=== PATIENT | male | born 1940 | race Caucasian/White ===

== ENCOUNTER 2019-09-12 16:38 | Emergency (ER) | payer MEDICARE, OTHER ==
[~2019-09-12] VITALS: Ht 180.3 cm; Wt 109.3 kg
[2019-09-12] MEDS ORDERED: MAGNESIUM500 MG PO (18:38)
[2019-09-12] MEDS ORDERED: ASPIR-TRIN325 MG PO (18:38)
[2019-09-12] MEDS ORDERED: MULTI VITAMIN1 EACH PO (18:39)
[2019-09-12] MEDS ORDERED: KAPSPARGO SPRIN25 MG PO (18:39)
[2019-09-12] MEDS ORDERED: AVALIDE 150-121 EACH PO (18:39)
[2019-09-12] MEDS ORDERED: NEXIUM2.5 MG PO (18:39)
[2019-09-12] MEDS ORDERED: LIPITOR20 MG PO (18:40)
== END 2019-09-12 20:24 | disposition home or self-care (01) ==
LOC: ED 16:38
DX: R10.9 Unspecified abdominal pain (principal); I10 Essential (primary) hypertension; Z79.899 Other long term (current) drug therapy; Z79.82 Long term (current) use of aspirin
CPT/HCPCS: 74177; 80053; 85025; 99284-25; J7040; Q9967

== ENCOUNTER 2020-07-29 05:39 | Emergency (ER) | payer MEDICARE, OTHER ==
[~2020-07-29] VITALS: Ht 180.3 cm; Wt 105.0 kg
[~2020-07-29 05:39] MED LIST: ASPIR-TRIN325 MG PO; AVALIDE 150-121 EACH PO; KAPSPARGO SPRIN25 MG PO; LIPITOR20 MG PO; MAGNESIUM500 MG PO; MULTI VITAMIN1 EACH PO; NEXIUM2.5 MG PO
[2020-07-29] MEDS ORDERED: ELIQUIS5 MG PO (05:57)
[2020-07-29] MEDS ORDERED: ULTRAM50 MG PO (07:00)
--- NOTE | 2020-07-29 07:29 | EKG ---
[facility] [address] [facility] [place], [place] [address] Signed Atrial fibrillation Abnormal ECG No previous ECGs available Confirmed by ROBERTA ROBERTO MD ([id number]) on 07/29/2020 7:28:53 AM Electronically Signed By: ROBERTA ROBERTO MD 07/29/20 0729 PATIENT NAME: MK HERNÁNDEZ Electrocardiogram DATE OF : 42 PHYSICIAN: ROBERTA ROBERTO MD REPORT #: [id number] REPORT IS CONFIDENTIAL AND NOT TO BE RELEASED WITHOUT AUTHORIZATION
== END 2020-07-29 07:09 | disposition home or self-care (01) ==
LOC: ED 05:39
DX: I10 Essential (primary) hypertension (principal); M25.572 Pain in left ankle and joints of left foot; Z86.73 Personal history of transient ischemic attack (TIA), and cerebral infarction without residual deficits; Z79.899 Other long term (current) drug therapy
CPT/HCPCS: 80053; 85025; 93005; 93010; 99283-25

== ENCOUNTER 2025-01-25 23:38 | Inpatient (IN) | payer MEDICARE, OTHER ==
[~2025-01-25] VITALS: Ht 180.3 cm; Wt 97.7 kg
[~2025-01-25 23:38] MED LIST changes: +ELIQUIS5 MG PO; -KAPSPARGO SPRIN25 MG PO; +METOPROLOL TART25 MG PO; +ULTRAM50 MG PO
[2025-01-26] VITALS (12 sets, daily range): BP systolic 115–160; BP diastolic 68–123
[2025-01-26] MEDS ORDERED: TRANEXAMIC ACID IN NACL,ISO-OS 1,000 MG/100 ML PIGGYBACK IV ONE (00:15)
[2025-01-26 00:29] LABS: BASOPHILS 0.7 % (0.2-1.2); EOSINOPHILS 2.4 % (0.8-7.0); LYMPHOCYTES 30.4 % (21.8-53.1); MCH 31.1 PG (25.7-32.2); MCHC 33.4 g/dL (32.3-36.5); MCV 93.0 fL (79.0-92.2); MONOCYTES 8.9 % (5.3-12.2); NEUTROPHILS 57.3 % (34.0-67.9); RBC 4.02 M/uL (4.63-6.08)
[2025-01-26 00:42] LABS: INR 1.16 (0.80-1.30); PROTIME 14.1 Sec (11.2-14.2)
[2025-01-26] MEDS ORDERED: SODIUM CHLORIDE 0.9% 1,000 ML IV ONE (00:45)
[2025-01-26 00:46] LABS: ALT (SGPT) 20.0 U/L (14-59); AST (SGOT) 10.0 U/L (15-37); GLOMERULAR FILTRATION RATE,EST 58.0 mL/min (>60); PROTEIN, TOTAL 5.8 g/dL (6.4-8.2); UREA NITROGEN 24.0 mg/dL (7-18)
[2025-01-26 01:41] LABS: ABO O; ANTIBODY SCREEN NEGATIVE; RH POSITIVE
[2025-01-26 02:04] LABS: BASOPHILS 0.4 % (0.2-1.2); EOSINOPHILS 1.0 % (0.8-7.0); LYMPHOCYTES 17.1 % (21.8-53.1); MCH 31.3 PG (25.7-32.2); MCHC 33.6 g/dL (32.3-36.5); MCV 93.2 fL (79.0-92.2); MONOCYTES 6.3 % (5.3-12.2); NEUTROPHILS 74.8 % (34.0-67.9); RBC 3.51 M/uL (4.63-6.08)
[2025-01-26 03:13] LABS: BASOPHILS 0.4 % (0.2-1.2); EOSINOPHILS 0.8 % (0.8-7.0); LYMPHOCYTES 17.9 % (21.8-53.1); MCH 31.2 PG (25.7-32.2); MCHC 33.3 g/dL (32.3-36.5); MCV 93.7 fL (79.0-92.2); MONOCYTES 5.5 % (5.3-12.2); NEUTROPHILS 75.0 % (34.0-67.9); RBC 3.65 M/uL (4.63-6.08)
[2025-01-26] MEDS ORDERED: SODIUM CHLORIDE 0.9% 50 ML IV PRN (03:30)
[2025-01-26] MEDS ORDERED: HUMAN PROTHROMBIN COMPLX(PCC) 500 UNIT/20 ML VIAL IV ONE (03:30)
[2025-01-26] MEDS ORDERED: DEXTROSE 5% - LACTATED RINGERS 1,000 ML IV SCH ×2 (04:00→23:00)
[2025-01-26] MEDS ORDERED: ACETAMINOPHEN 325 MG TAB PO PRN (04:00)
[2025-01-26] MEDS ORDERED: MORPHINE SULFATE 4 MG/ML VIAL IV PRN (04:00)
[2025-01-26 05:21] LABS: BASOPHILS 0.4 % (0.2-1.2); EOSINOPHILS 0.4 % (0.8-7.0); LYMPHOCYTES 16.6 % (21.8-53.1); MCH 31.3 PG (25.7-32.2); MCHC 33.5 g/dL (32.3-36.5); MCV 93.3 fL (79.0-92.2); MONOCYTES 5.8 % (5.3-12.2); NEUTROPHILS 76.3 % (34.0-67.9); RBC 3.42 M/uL (4.63-6.08)
[2025-01-26 05:40] LABS: ALT (SGPT) 19.0 U/L (14-59); AST (SGOT) 10.0 U/L (15-37); GLOMERULAR FILTRATION RATE,EST 64.0 mL/min (>60); PROTEIN, TOTAL 5.1 g/dL (6.4-8.2); UREA NITROGEN 24.0 mg/dL (7-18)
[2025-01-26] MEDS ORDERED: MAGNESIUM SULFATE 50 ML IV ONE (06:56)
[2025-01-26] MEDS ORDERED: MAGNESIUM SULFATE 2 GM/50 ML BAG IV ONE (07:00)
--- NOTE | 2025-01-26 07:02 | NUR ---
BRAKE RELINER SHOWS FREQUENT RUNS OF PVCs/V TACH. VERIFIED WITH DR. SERRANO THAT THE ADMITTING DOCTOR WAS AWARE. DR. SERRANO VERIFIED SHE WAS AWARE AND CAME TO REVIEW EKG. WAS CONSULTED BY DR. PATEL TO SEE PATIENT. MAG 2G ORDERED AND GIVEN. SECOND IV SITE ESTABLISHED. IN ROOM AT THIS TIME.
[2025-01-26 07:17] LABS: BASOPHILS 0.5 % (0.2-1.2); EOSINOPHILS 0.4 % (0.8-7.0); LYMPHOCYTES 20.8 % (21.8-53.1); MCH 31.3 PG (25.7-32.2); MCHC 34.0 g/dL (32.3-36.5); MCV 92.2 fL (79.0-92.2); MONOCYTES 5.8 % (5.3-12.2); NEUTROPHILS 72.2 % (34.0-67.9); RBC 3.48 M/uL (4.63-6.08)
--- NOTE | 2025-01-26 07:30 | NUR ---
REPORT RECEIVED FROM LIZZIE WHITT. PT AWAKE IN BED, DENIES NEEDS AT THIS TIME.
--- NOTE | 2025-01-26 07:43 | NUR ---
PATIENT REPORTS CHEST PAIN. IN ROOM. RT CALLED FOR STAT EKG.
--- NOTE | 2025-01-26 07:51 | NUR ---
Pt arrived on the CCU around 0430 Pt had 1 bloody stool around 300ml- frequent runs of vtach- otherwise vitals stable and pt asymptomatic- 2g of mag sulfate ordered
[2025-01-26] MEDS ORDERED: METOPROLOL TARTRATE 5 MG/5 ML VIAL ONE (08:20)
--- NOTE | 2025-01-26 08:25 | NUR ---
DR GONZALEZ AT BEDSIDE, ORDER GIVEN FOR 5MG IV METOPROLOL, MED GIVEN. HR DOWN FROM 90'S TO 70-80'S.
[2025-01-26] MEDS ORDERED: METOPROLOL TARTRATE 5 MG/5 ML VIAL IV ONE (08:30)
[2025-01-26] MEDS ORDERED: METOPROLOL SUCCINATE 25 MG TABCR PO SCH (09:00)
--- NOTE | 2025-01-26 09:00 | NUR ---
HR HAS STAYED 70-80'S WITH MUCH LESS ECTOPY SINCE METOPROLOL WAS GIVEN.
[2025-01-26] MEDS ORDERED: PANTOPRAZOLE SODIUM 40 MG/10 ML VIAL IV SCH (09:12)
--- NOTE | 2025-01-26 10:00 | NUR ---
PT UP TO BEDSIDE COMMODE FOR LIQUID RED STOOL 150ML, BACK TO BED. HR REMAINED STEADY WHILE UP, NO ECTOPY, DENIES DIZZINESS/LIGHTHEADEDNESS. DR GONZALEZ AND DR PATEL BOTH AWARE OF STOOL, WAITING ON LABS AT 1200.
--- NOTE | 2025-01-26 12:00 | NUR ---
PT AWAKE IN BED, FAMILY IN TO VISIT HIM.
[2025-01-26 12:06] LABS: BASOPHILS 0.4 % (0.2-1.2); EOSINOPHILS 0.9 % (0.8-7.0); LYMPHOCYTES 26.2 % (21.8-53.1); MCH 30.8 PG (25.7-32.2); MCHC 33.0 g/dL (32.3-36.5); MCV 93.3 fL (79.0-92.2); MONOCYTES 6.9 % (5.3-12.2); NEUTROPHILS 65.3 % (34.0-67.9); RBC 3.28 M/uL (4.63-6.08)
[2025-01-26 12:27] LABS: ALT (SGPT) 21.0 U/L (14-59); AST (SGOT) 8.0 U/L (15-37); GLOMERULAR FILTRATION RATE,EST 70.0 mL/min (>60); PROTEIN, TOTAL 5.3 g/dL (6.4-8.2); UREA NITROGEN 20.0 mg/dL (7-18)
--- NOTE | 2025-01-26 13:13 | NUR ---
PT CALLED TO USE COMMODE, UP TO BSC WITH ASSIST.
--- NOTE | 2025-01-26 13:19 | NUR ---
LAB RESULTS CALLED TO DR PATEL, ORDER GIVEN FOR ADDITIONAL LABS AT 1800.
--- NOTE | 2025-01-26 14:36 | EKG ---
[facility] [address] [facility] [place] [address] Signed Atrial fibrillation with premature ventricular or aberrantly conducted complexes Nonspecific ST abnormality Abnormal ECG When compared with ECG of 29-JUL-2020 06:21, No significant change was found Confirmed by ÁLVARO GONZALEZ MD ([id number]) on 01/26/2025 2:35:46 PM Electronically Signed By: ÁLVARO GONZALEZ 01/26/25 1436 PATIENT NAME: MK HERNÁNDEZ Electrocardiogram DATE OF : 42 PHYSICIAN: ÁLVARO GONZALEZ REPORT #: [id number] REPORT IS CONFIDENTIAL AND NOT TO BE RELEASED WITHOUT AUTHORIZATION
--- NOTE | 2025-01-26 14:53 | NUR ---
PT RESTING WITH EYES CLOSED, HR 70'S AFIB WITH OCC PVC'S.
[2025-01-26] MEDS ORDERED: ATORVASTATIN 20 MG TAB PO SCH (17:00)
[2025-01-26 18:07] LABS: BASOPHILS 0.4 % (0.2-1.2); EOSINOPHILS 1.5 % (0.8-7.0); LYMPHOCYTES 34.2 % (21.8-53.1); MCH 31.0 PG (25.7-32.2); MCHC 33.7 g/dL (32.3-36.5); MCV 92.0 fL (79.0-92.2); MONOCYTES 8.1 % (5.3-12.2); NEUTROPHILS 55.5 % (34.0-67.9); RBC 3.23 M/uL (4.63-6.08)
--- NOTE | 2025-01-26 18:15 | NUR ---
PT UP TO BEDSIDE COMMODE VIA SBA. PT HAD 175 MLS OF URINE PRESENT. PT NOW BACK IN BED, CALL LIGHT IN REACH.
--- NOTE | 2025-01-26 20:00 | NUR ---
PATIENT RESTING IN BED. AAOX4. DENIES PAIN OR GI UPSET. VS STABLE. TOLERATING ROOM AIR. ABD IS SOFT; BOWEL SOUNDS ACTIVE. IV SITES WNL X2.
[2025-01-26] MEDS ORDERED: METOPROLOL TARTRATE 50 MG TAB PO SCH (21:00)
--- NOTE | 2025-01-26 21:00 | NUR ---
VERIFIED PATIENT IV FLUIDS WITH WHILE HE WAS IN SEEING PATIENT.
--- NOTE | 2025-01-26 21:30 | NUR ---
PATIENT PROVIDED MEDS PER ORDER. IV FLUIDS INFUSING, SITE WNL. PATIENT DENIED ANY CONCERNS OR NEEDS. CALL LIGHT IN REACH. LIGHTS DIMMED.
--- NOTE | 2025-01-26 23:00 | NUR ---
ASSISTED PATIENT UP TO [facility]. PATIENT TOLERATED ACTIVITY WELL. HR 80-90 WITH ACTIVITY. PATIENT VOIDED, NO BM OR BLOOD. PATIENT RETURNED TO BED. CALL LIGHT IN REACH.
[2025-01-27] VITALS (10 sets, daily range): BP systolic 128–168; BP diastolic 74–97
--- NOTE | 2025-01-27 02:30 | NUR ---
PATIENT UP TO BSC TO VOID. TOLERATES ACTIVITY WELL. REPORTS NOT SLEEPING WELL. DENIED A WARM BLANKET OR ANYTHING ELSE TO IMPROVE COMFORT. PATIENT REPORTS HE CHRONICALLY HAS ISSUES SLEEPING. CALL LIGHT IN REACH. LIGHTS OFF.
--- NOTE | 2025-01-27 04:11 | NUR ---
ASSISTED PATIENT UP TO BSC. PATIENT IS STEADY ON FEET. VOIDED CLEAR URINE. NO STOOL OR BLOOD. PATIENT VS STABLE. HE DENIES PAIN OR GI UPSET. PATIENT RETURNED TO BED. LIGHTS OFF. CALL LIGHT IN REACH.
[2025-01-27 05:09] LABS: BASOPHILS 0.6 % (0.2-1.2); EOSINOPHILS 2.5 % (0.8-7.0); LYMPHOCYTES 31.7 % (21.8-53.1); MCH 31.7 PG (25.7-32.2); MCHC 34.5 g/dL (32.3-36.5); MCV 91.8 fL (79.0-92.2); MONOCYTES 8.9 % (5.3-12.2); NEUTROPHILS 56.1 % (34.0-67.9); RBC 3.06 M/uL (4.63-6.08)
[2025-01-27 05:24] LABS: GLOMERULAR FILTRATION RATE,EST 73.0 mL/min (>60); UREA NITROGEN 14.0 mg/dL (7-18)
--- NOTE | 2025-01-27 07:30 | NUR ---
REPORT RECEIVED FROM ASTRID WHITT. PT RESTING IN BED, EYES CLOSED, RESP EVEN AND UNLABORED.
[2025-01-27] MEDS ORDERED: POLYETHYLENE GLYCOL 3350 BOTTLE PO SCH (09:52)
--- NOTE | 2025-01-27 12:10 | NUR ---
MED REC COMPLETE
--- NOTE | 2025-01-27 12:19 | EKG ---
[facility] [address] [facility] [place] [address] Signed Atrial fibrillation with premature ventricular or aberrantly conducted complexes Rightward axis Nonspecific intraventricular block T wave abnormality, consider inferior ischemia T wave abnormality, consider anterolateral ischemia Abnormal ECG When compared with ECG of 26-JAN-2025 06:35, (Unconfirmed) QRS duration has increased ST more depressed in Lateral leads T wave inversion now evident in Inferior leads T wave inversion now evident in Anterolateral leads Confirmed by ÁLVARO GONZALEZ MD ([id number]) on 01/27/2025 12:19:03 PM Electronically Signed By: ÁLVARO GONZALEZ 01/27/25 1219 PATIENT NAME: MK HERNÁNDEZ Electrocardiogram DATE OF : 42 PHYSICIAN: ÁLVARO GONZALEZ REPORT #: [id number] REPORT IS CONFIDENTIAL AND NOT TO BE RELEASED WITHOUT AUTHORIZATION
--- NOTE | 2025-01-27 13:30 | NUR ---
PT HAS BEEN UP AND DOWN TO THE BSC 4 TIMES IN THE LAST COUPLE OF HOURS, HR REMAINS 70'S AFIB, OCC PVC, HAS NOT HAD A BOWEL MOVEMENT YET, VOIDING INTO COMMODE.
[2025-01-27] MEDS ORDERED: ATORVASTATIN 20 MG TAB PO SCH (17:00)
--- NOTE | 2025-01-27 18:27 | NUR ---
PT UP TO BSC FOR LIQUID STOOL/URINE MIX-BROWN/RED. THIS TIME WHEN UP PT BEGAN HAVING PVC'S AND HR WENT UP TO 100'S.
--- NOTE | 2025-01-27 19:30 | NUR ---
PATIENT UP TO BSC INDEPENDENTLY. PATIENT HAD SMALL AMOUNT OF LIQUID BROWN/RED STOOL. DENIES ANY GI UPSET.
--- NOTE | 2025-01-27 20:30 | NUR ---
PATIENT REPORTS BEING READY FOR BED. PM MEDS PROVIDED. PATIENT HAS BEEN GETTING TO BSC FREQUENTLY TO VOID AND HAVE LOOSE STOOLE. STOOL IS LIQUID AND BROWN. PATIENT VS STABLE. HR 70-80'S AT REST; AFIB. MORE PCVs WITH ACTIVITY. IV FLUIDS INFUSING PER ORDER, SITE WNL. PATIENT IS AAOX4. STEADY ON FEET. DENIES PAIN. LUNGS ARE CLEAR. TOLERATING ROOM AIR.
--- NOTE | 2025-01-27 22:30 | NUR ---
PATIENT UP TO BSC. SMALL AMOUNT OF THIN YELLOW/BROWN LIQUID BOWEL MOVMENT NOTED. APPEARS PATIENT'S BOWEL PREP IS WORKING WELL.
[2025-01-28] VITALS (8 sets, daily range): BP systolic 115–172; BP diastolic 72–90
--- NOTE | 2025-01-28 00:30 | NUR ---
PATIENT UP TO BSC TO VOID. WARM BLANKET PROVIDED. NO OTHER NEEDS. CALL LIGHT IN REACH.
--- NOTE | 2025-01-28 02:00 | NUR ---
PATIENT RESTING IN BED, EYES CLOSED. APPEARS RESTFUL. VS STABLE. CALL LIGHT IN REACH.
--- NOTE | 2025-01-28 04:30 | NUR ---
PATIENT UP TO BATHROOM TO VOID. DENIES ANY GI UPSET OR PAIN. VS STABLE. HR STABLE WITH ACTIVITY. IV FLUIDS PER ORDER, SITE WNL. PATIENT DENIED OTHER NEEDS. CALL LIGHT IN REACH.
[2025-01-28 05:30] LABS: BASOPHILS 0.7 % (0.2-1.2); EOSINOPHILS 2.9 % (0.8-7.0); LYMPHOCYTES 29.4 % (21.8-53.1); MCH 31.4 PG (25.7-32.2); MCHC 33.7 g/dL (32.3-36.5); MCV 93.3 fL (79.0-92.2); MONOCYTES 9.6 % (5.3-12.2); NEUTROPHILS 57.1 % (34.0-67.9); RBC 2.99 M/uL (4.63-6.08)
[2025-01-28 05:40] LABS: GLOMERULAR FILTRATION RATE,EST 78.0 mL/min (>60); UREA NITROGEN 10.0 mg/dL (7-18)
--- NOTE | 2025-01-28 06:59 | NUR ---
UPDATE PROVIDED TO
--- NOTE | 2025-01-28 08:27 | NUR ---
UR CLINICAL REVIEW: 2MN VERSALUS, MEETS INPT FOR LOWER GI BLEED, AFIB CARDIAC MONITORING, TREND LABS, COLONOSCOPY TO BE DONE, NPO IV FLUIDS, MONITOR FOR BLEEDING MEDICARE INPT 01/26/2025 @ 0349 ORDER MATCHES REG PLAN TO DC TO HOME WHEN MEDICALLY STABLE.
--- NOTE | 2025-01-28 09:13 | NUR ---
ALERT AND ORIENTED IN BED, READING A BOOK. STATES HE LIVES IN HOUSE. HAS STAIRS TO GET INSIDE THAT HE HAS NO ISSUES WITH. PATIENT IS ABLE TO DRIVE WITHOUT DIFFICULTY. HAS NO DIFFICULTY WITH PAYING UTILITIES OR FOR FOOD OR MEDICATIONS. HE IS PLANNING ON RETURNING HOME WHEN MEDICALLY READY. STATES HE WOULD LIKE TO GO HOME TODAY AFTER COLONOSCOPY, IF POSSIBLE. EMAILED ADMITTING TO UPDATE PCP TO DR. AYALA IN CHART. NO CM NEEDS AT THIS TIME.
--- NOTE | 2025-01-28 10:30 | NUR ---
PT UP TO COMMODE TO VOID, BACK TO BED, HR STEADY. NEW IV PLACED IN RIGHT AC AND RIGHT WRIST IV REMOVED, AREA IS PUFFY. BLOOD BAND ADJUSTED BY LAB FOR TIGHTNESS.
--- NOTE | 2025-01-28 12:05 | NUR ---
PT TAKEN TO OR FOR PROCEDURE, DAUGHTER WAITING IN THE ROOM.
[2025-01-28] MEDS ORDERED: CEFAZOLIN SODIUM 2 GM VIAL ONE (12:13)
[2025-01-28] MEDS ORDERED: SODIUM CHLORIDE 0.9% 100 ML IV ONE (12:15)
--- NOTE | 2025-01-28 12:56 | NUR ---
PT BACK FROM OR, REPORT RECEIVED FROM ANESTHESIA AND OR NURSE.
--- NOTE | 2025-01-28 13:02 | NUR ---
01/28/25 1302 [address] 1245: PT BACK TO CCU. COUNTY ADVISER GIVES REPORT TO CCU RN.
--- NOTE | 2025-01-28 13:16 | NUR ---
VISITED DURING SPIRITUAL CARE ROUNDS. PT SUPPORTED BY DAUGHTER IN ROOM; BOTH IN OVERALL GOOD SPIRITS, NO IMMEDIATE NEEDS. RN TRANSITION PROVIDED SUPPORTIVE PRESENCE, HOSPITALITY, PRAYER, FACILITATED INTERACTION WITH THERAPY ANIMAL. PT AND DAUGHTER EXPRESSED GRATITUDE, HOPE.
--- NOTE | 2025-01-28 14:58 | NUR ---
PT UP TO BSC TO VOID AND THEN BACK TO BED, STEADY ON FEET, DENIES DIZZINESS/LIGHTHEADEDNESS AND HR STEADY 60'S AFIB. PT DENIES PAIN/NAUSEA/SOB. IS EAGER TO START A FULL LIQUID DIET, WAITING ON FOOD FROM KITCHEN.
--- NOTE | 2025-01-28 15:21 | NUR ---
PT SITTING UP IN BED EATING FULL LIQUID TRAY, IN GOOD SPIRITS, TALKING WITH FAMILY, DENIES NEEDS AT THIS TIME.
--- NOTE | 2025-01-28 19:30 | NUR ---
handoff report received from PERI Chang. patient laying awake in bed watching TV. no needs at this time. call light in reach.
--- NOTE | 2025-01-28 20:45 | NUR ---
PATIENT ASSESSMENT COMPLETE. PATIENT LAYING AWAKE IN BED, ALERT AND ORIENTED X4. PATIENT DENIES ANY GI UPSET AT THIS TIME. PATIENT REMAINS IN AFIB, HEART RATE 70-80'S. PATIENT ON ROOM AIR, TOLERATING WELL. PATIENT DENIES ANY PAIN AT THIS TIME. PATIENT VITAL SIGNS STABLE. PATIEN UPDATED ON PLAN OF CARE FOR THE NIGHT. CALL LIGHT IN REACH.
--- NOTE | 2025-01-28 21:16 | NUR ---
PATIENT UP TO BEDSIDE COMMODE, VOIDS 150CC OF CLEAR YELLOW URINE. PATIENT NOTED TO HAVE SMALL SMEAR ON LINEN. NEW LINEN AND GOWN PLACED. PATIENT BACK TO BED. NO FURTHER NEEDS AT THIS TIME. CALL LIGHT IN REACH.
--- NOTE | 2025-01-28 23:05 | NUR ---
patient up to bedside commode, voids 200cc of clear yellow urine. patient back to bed. no further needs at this time. call light in reach.
[2025-01-29] VITALS: BP 152/88
--- NOTE | 2025-01-29 01:34 | NUR ---
patient up to bedside commode to void, then back to bed. patient denies any further needs at this time. patient remains in AFIB, heart rate 60-80's. patient remains on room air, tolerating well. patient has call light in reach.
[2025-01-29 02:00] VITALS: BP 158/84
--- NOTE | 2025-01-29 03:00 | NUR ---
PATIENT RESTING WITH EYES CLOSED, RR 23. NO SIGNS OF ACUTE DISTRESS NOTED. PATIENT HAS CALL LIGHT IN REACH.
[2025-01-29 04:00] VITALS: BP 155/85
--- NOTE | 2025-01-29 04:39 | NUR ---
patient up to bedside commode to void. patient denies any nausea, pain, or feeling SOB at this time. patient has no further needs, call light in reach.
[2025-01-29 05:15] LABS: BASOPHILS 0.6 % (0.2-1.2); EOSINOPHILS 1.7 % (0.8-7.0); LYMPHOCYTES 18.8 % (21.8-53.1); MCH 30.8 PG (25.7-32.2); MCHC 33.3 g/dL (32.3-36.5); MCV 92.5 fL (79.0-92.2); MONOCYTES 9.8 % (5.3-12.2); NEUTROPHILS 68.8 % (34.0-67.9); RBC 3.05 M/uL (4.63-6.08)
--- NOTE | 2025-01-29 06:25 | NUR ---
patient awake. provided fresh ice water. patient denies any GI upset, pain, or SOB. patient has no needs at this time. call light in reach.
[2025-01-29 06:38] VITALS: BP 156/94
--- NOTE | 2025-01-29 07:30 | NUR ---
report from overnight caregiver kerry rn, pt resting in room with call light.
--- NOTE | 2025-01-29 07:45 | NUR ---
at bedside with pt and his daughter ata. breakfast to pt, full liquid. pt denies any needs, call light in reach -would like to go home today.
[2025-01-29 08:00] VITALS: BP 163/91
[2025-01-29] MEDS ORDERED: PANTOPRAZOLE SODIUM 40 MG TABEC PO SCH (09:00)
--- NOTE | 2025-01-29 09:10 | NUR ---
in room at pt bedside with hospitalist dr suero, pt denies needs, call light in reach - vo to sl iv. pt eating and drinking well. wants to go home, pending surgical visit.
[2025-01-29] MEDS ORDERED: POTASSIUM CHLORIDE 10 MEQ TABCR PO ONE (10:15)
[2025-01-29] MEDS ORDERED: MAGNESIUM CHLORIDE 64 MG TABCR PO ONE (10:15)
--- NOTE | 2025-01-29 11:50 | NUR ---
PT TOOK PO KCL AND MG ALL 6 PILLS AT ONCE AND BURPED THEN VOMITED UP THE WATER HE TOOK THE PILLS WITH. NO PILLS CAME UP. PT HAD A 100 ML EMISIS OF THE WATER AND THEN FELT BETTER. DENIES NEEDS AFTER EVENT. CALL LIGHT IN REACH.
[2025-01-29 12:55] VITALS: BP 140/70
--- NOTE | 2025-01-29 13:12 | NUR ---
PT ASSISTED TO STAND FROM CHAIR TO TRSF TO BED. DENIES NEEDS, CALL LIGHT IN REACH TOLERATED CHICKEN NOODLE SOUP AND GRAPE JUICE. REPORTS FEELING FULL AFTER MEAL. VOIDING X2 TOTAL 350 ML URINE OUT.
[2025-01-29] MEDS ORDERED: METOPROLOL TART25 MG PO (15:47)
--- NOTE | 2025-01-29 15:48 | NUR ---
DR VARGAS AND PHARMACY HERE WITH THIS RN FOR DC INSTRUCTIONS PRINTED. INCREASE METOPROLOL AND F/U TUES WITH PCP ORDERED. IV DC WNL. DAUGHTER JAKE HERE AND UNDERSTANDS DC INSTRUCTIONS. DC.
== END 2025-01-29 15:00 | disposition home or self-care (01) | DRG 394 ==
LOC: ED 23:38 → CCU 01-26 03:49
PROVIDERS: Family Medicine; Internal Medicine; ADMIT Surgery; ATTEND Surgery
PROC: 0DJD8ZZ Inspection of Lower Intestinal Tract, Via Natural or Artificial Opening Endoscopic (ICD-10-PCS; principal; 2025-01-28 12:00)
DX: K64.2 Third degree hemorrhoids (principal); I47.20 Ventricular tachycardia, unspecified; I10 Essential (primary) hypertension; M19.90 Unspecified osteoarthritis, unspecified site; I48.91 Unspecified atrial fibrillation; I25.2 Old myocardial infarction; Z86.73 Personal history of transient ischemic attack (TIA), and cerebral infarction without residual deficits; Z86.74 Personal history of sudden cardiac arrest; Z96.651 Presence of right artificial knee joint; Z98.1 Arthrodesis status; Z79.01 Long term (current) use of anticoagulants; Z79.899 Other long term (current) drug therapy
CPT/HCPCS: 00811; 36415; 74177; 80048; 80053; 83735; 84100; 84484; 85025; 85610; 86850; 86900; 86901; 93005; 93010; 93306; 94640; A9270; J0688; J2470; J2704; J3475; J7030; J7121; J7168; Q9967